=== PATIENT | male | born 1970 ===

== ENCOUNTER 2017-02-18 06:49 | Inpatient (IN) | payer MEDICAID ==
[2017-02-18 07:57] LABS: BASO % 0.3 % (0.0-2.0); EOS % 0.2 % (0.0-4.0); HEMATOCRIT 39.6 % (35.0-51.0); LYMPH # 0.8 K/uL (1.0-4.3); MEAN CELL VOLUME 82.7 fl (80.0-94.0); MEAN CORPUSCULAR HGB CONC 32.7 g/dL (33.0-37.0); MEAN PLATELET VOLUME 8.3 fl (7.2-11.7); MONO # 0.5 K/uL (0.0-0.8); MONO % 4.6 % (0.0-10.0); NEUT # 9.9 K/uL (1.8-7.0); NEUT % 87.9 % (50.0-75.0); PLATELET COUNT 209 K/uL (130-400); RED CELL DISTRIBUTION WIDTH 14.3 % (11.5-14.5); WHITE BLOOD COUNT 11.3 K/uL (4.8-10.8)
[2017-02-18 08:12] LABS: ALCOHOL SERUM < 10 mg/dl (0-10); BLOOD UREA NITROGEN 17 mg/dl (9-20); CALCIUM 10.1 mg/dL (8.4-10.2); CARBON DIOXIDE 21 mmol/L (22-30); CHLORIDE 107 mmol/L (98-107); GFR AFRICAN-AMERICAN > 60; GLUCOSE,RANDOM 138 mg/dL (75-110); POTASSIUM 4.6 MMOL/L (3.6-5.0); SODIUM 141 mmol/l (132-148)
--- NOTE | 2017-02-18 08:22 | ED PDOC ---
HPI: Psych/Substance Abuse Time Seen by Provider: 02/18/17 07:09 Chief Complaint (Nursing): Psychiatric Evaluation Chief Complaint (Provider): Psychiatric Evaluation History Per: Patient History/Exam Limitations: no limitations Onset/Duration Of Symptoms: Hrs Current Symptoms Are (Timing): Still Present Additional Complaint(s): 46 y/o male with a past medical history of depression, diabetes, hypertension, and hypercholesterolemia who presents to the emergency department via ambulance and police after mother called because patient had a knife in his hand and wanted to kill himself. Admits to suicidal behavior with plan to harm self with knife. Reports he is depressed. Patient has history of alcohol and heroin abuse. Denies homicidal ideation, use of medication or drugs. Past Medical History Reviewed: Historical Data, Nursing Documentation, Vital Signs Vital Signs: Last Vital Signs Temp 99.0 F 02/18/17 07:02 Pulse 112 H 02/18/17 07:02 Resp 18 02/18/17 07:02 BP 121/67 02/18/17 07:02 Pulse Ox 95 02/18/17 07:02 - Medical History PMH: Anxiety, Back Problems, Bipolar Disorder, Depression, Diabetes, HTN, Hypercholesterolemia - Family History Family History: States: Unknown Family Hx - Social History Current smoker - smoking cessation education provided: Yes Alcohol: Social Drugs: Other - Home Medications Home Medications: Ambulatory Orders Medication Instructions Recorded Naproxen [Naprosyn] 500 mg PO BID #20 tab 04/13/15 - Allergies Allergies/Adverse Reactions: Allergies Allergy/AdvReac Type Severity Reaction Status Date / Time morphine Allergy SHORTNESS Verified 09/23/15 15:41 OF BREATH Review of Systems ROS Statement: Except As Marked, All Systems Reviewed And Found Negative Constitutional: Negative for: Other (Medication or drugs) Psych: Positive for: Depression, Suicidal ideation. Negative for: Other ( Homicidal ideation) Physical Exam - Reviewed Nursing Documentation Reviewed: Yes Vital Signs Reviewed: Yes - Physical Exam Appears: Positive for: Non-toxic, No Acute Distress Head Exam: Positive for: ATRAUMATIC, NORMAL INSPECTION, NORMOCEPHALIC Skin: Positive for: Normal Color, Warm, Dry Eye Exam: Positive for: Normal appearance, EOMI, PERRL ENT: Positive for: Normal ENT Inspection Neck: Positive for: Normal, Supple Cardiovascular/Chest: Positive for: Regular Rate, Rhythm. Negative for: Murmur Respiratory: Positive for: Normal Breath Sounds. Negative for: Accessory Muscle Use, Wheezing, Respiratory Distress Gastrointestinal/Abdominal: Positive for: Normal Exam, Soft. Negative for: Tenderness Back: Positive for: Normal Inspection. Negative for: L CVA Tenderness, R CVA Tenderness Extremity: Positive for: Normal ROM. Negative for: Pedal Edema Neurologic/Psych: Positive for: Alert, Oriented (x3), Mood/Affect (Calm and cooperative) - Laboratory Results Result Diagrams: 02/18/17 07:30 02/18/17 07:30 - ECG O2 Sat by Pulse Oximetry: 95 (RA) Pulse Ox Interpretation: Normal Medical Decision Making Medical Decision Making: Time: 07:14 Initial impression: Depression and suicidal behavior Initial plan: --Drug Screen, Urine --Urine DIP --CBC w/ diff --Crisis evaluation as ordered Vital signs are stable. Labs reviewed. In my opinion there are no current acute medical conditions that contraindicate the placement of this patient in a psychiatric unit. Time: :59 --Admit to hospital routine: As Inpatient in Adult Psychiatry for bipolar disorder and substance abuse under the care of Dr. Chris Patton MD Scribe Attestation: Documented by Michelle Oviedo, acting as a scribe for Damari Castro MD. Provider Scribe Attestation: All medical record entries made by the Scribe were at my direction and personally dictated by me. I have reviewed the chart and agree that the record accurately reflects my personal performance of the history, physical exam, medical decision making, and the department course for this patient. I have also personally directed, reviewed, and agree with the discharge instructions and disposition. Disposition - Clinical Impression Clinical Impression: Substance abuse, Bipolar disorder - Patient ED Disposition Is Patient to be Admitted: Yes (Inpatient in Adult Psychiatry) Counseled Patient/Family Regarding: Studies Performed - Disposition Disposition Time: 11:59 Condition: FAIR - Pt Status Changed To: Hospital Disposition Of: Inpatient - Admit Certification Admit to Inpatient:: After my assessment, the patient will require hospitalization for at least two midnights. This is because of the severity of symptoms shown, intensity of services needed, and/or the medical risk in this patient being treated as an outpatient. - POA Present On Arrival: None
[2017-02-18 09:18] LABS: EOSINOPHIL 1 % (0-7); NEUTROPHIL 89 % (42-75); TOTAL CELLS COUNTED 100
[2017-02-18 10:46] LABS: ALB/GLOB RATIO 1.4 (1.0-2.1); BILIRUBIN,TOTAL 0.5 mg/dl (0.2-1.3); TOTAL PROTEIN 7.9 G/DL (6.3-8.2)
[2017-02-18] MEDS ORDERED: Magnesium Hydroxide Susp 30 ml UD PO PRN (14:00)
[2017-02-18] MEDS ORDERED: Alum-Mag Hydrox-Simethicone Susp (30 mL) PO PRN (14:00)
--- NOTE | 2017-02-18 17:20 | PCM.BM ---
Treatment Plan Problems - Problems identified on initial assessmt Helplessness/Hopelessness Date Initiated: 02/18/17 Time Initiated: 17:18 Assessment reference: NA Status: Active Medication nonadherence Date Initiated: 02/18/17 Time Initiated: 17:19 Assessment reference: NA Status: Active Defensive Coping Date Initiated: 02/18/17 Time Initiated: 17:19 Assessment reference: NA Status: Active Treatment assets and liabiliti Patient Assests: self-reliant, ADL independent, physically healthy Patient Liabilities: substance abuse, legal issue, other - Milieu Protocol Maintain good personal hygiene: daily Encourage regular showers, daily Remind patient to perform daily oral care, daily Assist patient to perform ADL's Maintain personal safety: every shift Educate patient to report safety concerns to staff, every shift Monitor environment for contraband/sharps Medication safety: Monitor for expected outcome, potential side effects: every shift, Assess barriers to learning: every shift, Assess readiness for medication education: every shift Discharge/Continuing Care - Education Needs Education Needs: Patient Medication, Patient Diagnosis/Disease Process, Patient Activities of Daily Living, Patient Personal Hygiene/Grooming - Discharge Discharge Criteria: Tolerates medication w/o severe side effects, Free of Suicidal thoughts, Normal sleep pattern
--- NOTE | 2017-02-18 20:07 | CP.PCM.HP ---
History of Present Illness - History of Present Illness History of Present Illness: 46 yo male with history of DM2, HLD and Depression admitted to psyche unit because of suicidal intent. Patient also admitted to Heroin and Cocaine abuse. Present on Admission - Present on Admission Any Indicators Present on Admission: No History of DVT/PE: No History of Uncontrolled Diabetes: No Urinary Catheter: No Decubitus Ulcer Present: No Review of Systems - Review of Systems All systems: reviewed and no additional remarkable complaints except (aside from those mentioned above, 12 point system review were negative by me) Past Patient History - Tetanus Immunizations Tetanus Immunization: Unknown - Past Social History Smoking Status: Light Smoker < 10 Cigarettes Daily Alcohol: Social Drugs: Cocaine, Opiates, Other - CARDIAC Hx Cardiac Disorders: Yes Other/Comment: high cholesterol - PULMONARY Hx Respiratory Disorders: No - NEUROLOGICAL Hx Neurological Disorder: No - HEENT Hx HEENT Problems: No - RENAL Hx Chronic Kidney Disease: No - ENDOCRINE/METABOLIC Hx Diabetes Mellitus Type 2: Yes (takes metformin) - HEMATOLOGICAL/ONCOLOGICAL Hx Blood Disorders: No Hx Human Immunodeficiency Virus (HIV): No - INTEGUMENTARY Hx Dermatological Problems: No - MUSCULOSKELETAL/RHEUMATOLOGICAL Hx Musculoskeletal Disorders: No - GASTROINTESTINAL Hx Gastrointestinal Disorders: No - GENITOURINARY/GYNECOLOGICAL Hx Genitourinary Disorders: No - PSYCHIATRIC Hx Anxiety: Yes Hx Bipolar Disorder: Yes Hx Depression: Yes Hx Substance Use: Yes - SURGICAL HISTORY Hx Surgeries: No - ANESTHESIA Hx Anesthesia: No Meds Allergies/Adverse Reactions: Allergies Allergy/AdvReac Type Severity Reaction Status Date / Time morphine Allergy SHORTNESS Verified 09/23/15 15:41 OF BREATH Physical Exam - Constitutional Appears: No Acute Distress - Head Exam Head Exam: ATRAUMATIC - Eye Exam Eye Exam: absent: Scleral icterus - ENT Exam ENT Exam: Mucous Membranes Moist - Neck Exam Neck exam: Negative for: Meningismus - Respiratory Exam Respiratory Exam: absent: Rhonchi, Wheezes, Respiratory Distress - Cardiovascular Exam Cardiovascular Exam: REGULAR RHYTHM, +S1, +S2 - GI/Abdominal Exam GI & Abdominal Exam: Soft. absent: Tenderness - Rectal Exam Rectal Exam: Deferred - Extremities Exam Extremities exam: Negative for: pedal edema - Neurological Exam Neurological exam: Alert, Oriented x3 - Psychiatric Exam Psychiatric exam: Normal Affect - Skin Skin Exam: Dry, Intact Results - Vital Signs Recent Vital Signs: Last Vital Signs Temp 98.6 F 02/18/17 11:25 Pulse 60 02/18/17 19:07 Resp 18 02/18/17 14:26 BP 117/74 02/18/17 19:07 Pulse Ox 95 02/18/17 12:40 - Labs Result Diagrams: 02/18/17 07:30 02/18/17 07:30 Assessment & Plan (1) Suicidal intent Status: Acute Comment: psyche is managing (2) DM2 (diabetes mellitus, type 2) Status: Acute Comment: diabetic diet. accuchek ACHS. HgA1C, BMP in am
--- NOTE | 2017-02-18 20:43 | CARD ---
APPROVED REPORT EKG Measurement Heart [id number] MA [id number] <Conclusion> Normal sinus rhythm Minimal voltage criteria for LVH, may be normal variant Borderline ECG
[2017-02-19 08:28] LABS: CHOLESTEROL 168 mg/dL (0-199)
[2017-02-19] MEDS: Multivitamin With Minerals Tab PO SCH (09:06)
[2017-02-19 11:34] VITALS: O2SAT 18
--- NOTE | 2017-02-19 11:52 | PCM.PSYCH ---
Initial Psychiatric Evaluation - Initial Psychiatric Evaluation Type of Admission: Voluntary Legal Status: Capacity Chief Complaint (in patient's own words): i need to stop using Patient's Reaction to Hospitalization: cooperative History of Present Illness and Precipitating Events: 46 yo male with history of bipolar depression and opioid dependence. he presented to the ER reporting suicidal thoughts. pt wanted help before the thought progressed and he acted on them. he reports low energy, poor concentration, inability to sleep at night, feelings of hopelessness, lack of interest and motivation. he denies any recent manic symptoms. he reports no psychotic symptoms. he reports using about 4 bags of heroin by snorting daily. he minimizes other substance use, but his urine is positive for cocaine and pcp in addition to opiates. he denies any severe withdrawal symptoms. Current Medications: Active Medications Generic Name Dose Route Start Last Admin Trade Name Freq PRN Reason Stop Dose Admin Acetaminophen 650 mg 02/18/17 14:00 Tylenol 325mg Tab PO Q4 PRN Pain, moderate (4-7) Al Hydrox/Mg Hydrox/Simethicone 30 ml 02/18/17 14:00 Maalox Plus 30 Ml PO Q4 PRN Dyspepsia Aripiprazole 5 mg 02/19/17 12:00 Abilify PO DAILY JAMI Bupropion HCl 150 mg 02/20/17 09:00 Wellbutrin Sr 150 Mg PO DAILY JAMI Clonidine HCl 0.1 mg 02/18/17 17:00 02/19/17 09:04 Catapres PO 0.1 mg Q8 JAMI Administration Diphenhydramine HCl 50 mg 02/18/17 14:00 Benadryl PO Q6 PRN Extrapyramidal Symptoms Haloperidol 5 mg 02/18/17 14:00 Haldol PO Q4 PRN Agitation Haloperidol Lactate 5 mg 02/18/17 14:00 Haldol IM Q4 PRN Agitation, Unable to Take PO Ibuprofen 600 mg 02/18/17 15:54 02/19/17 09:05 Motrin Tab PO 600 mg Q6 PRN Administration Pain, severe (8-10) Loperamide HCl 2 mg 02/18/17 15:52 Imodium PO QID PRN Diarrhea Lorazepam 2 mg 02/18/17 14:00 Ativan IM Q4 PRN Anxiety/Agitation,Unable PO Lorazepam 2 mg 02/18/17 14:00 Ativan PO Q4 PRN Anxiety/Agitation Magnesium Hydroxide 30 ml 02/18/17 14:00 Milk Of Magnesia PO HS PRN Constipation Multivitamins/Minerals 1 tab 02/19/17 09:00 02/19/17 09:06 Therapeutic-M Tab PO 1 tab DAILY JAMI Administration Past Psychiatric History - Past Psychiatric History Previous Treatment History: Inpatient Prior Professional Help: prior admissions, prior rehab treatment History of Abuse: denies at this time History of ETOH/Drug Use: uds positive for cocaine, opiates and pcp. smokes 5 cigarettes daily. History of Family Illness: denies Pertinent Medical Hx (Current Medical&Sleep Prob, Allergies): Allergies Allergy/AdvReac Type Severity Reaction Status Date / Time morphine Allergy SHORTNESS Verified 09/23/15 15:41 OF BREATH Naproxen [Naprosyn] 500 mg PO BID #20 tab 04/13/15 Review of Systems - Psychiatric Psychiatric: As Per HPI Mental Status Examination - Personal Presentation Personal Presentation: Looks stated age Additional comments: well groomed - Affect Affect: Broad - Motor Activity Motor Activity: Calm - Reliability in Providing Information Reliability in Providing Information: Good - Speech Speech: Organized - Mood Mood: Depressed - Formal Thought Process Formal Thought Process: No Impairment - Obsessions/Compulsions Obsessions: No Compulsions: No - Cognitive Functions Orientation: Person, Place, Situation, Time Sensorium: Alert Attention/Concentration: Attentive Abstract Thinking: [place] Estimate of Intelligence: Average Judgement: Intact, as evidence by: Insight regarding need for hospitalization Memory: Recent intact, as evidence by: Ability to recall events of the day, Remote intact, as evidenced by: Abilit to recall sig. life events - Risk Risk: Suicidal, Diminished functioning - Strength & Assets Inventory Strength & Assets Inventory: Intelligence - Limitations Limitations: Other (on probation) DSM 5 DX - DSM 5 DSM 5 Diagnosis: opioid dependence pcp abuse cocaine abuse bipolar disorder, depressed - Recommended/Plan of Treatment Treatment Recommendations and Plan of Treatment: admit to [facility] for safety and observation gather collateral information provide supportive therapy adjust medications- start wellbutrin for depression, abilify for mood. pt agrees with this treatment refer to aftercare hospitalist consult Projected ELOS: 2-3 days - Smoking Cessation Smoking Cessation Initiated: Yes
[2017-02-19 20:50] VITALS: TEMP 97.5
[2017-02-20] MEDS ORDERED: buPROPion SR 150 MG TABLET PO SCH (09:00)
[2017-02-20] MEDS: Multivitamin With Minerals Tab PO SCH (09:56)
[2017-02-20 10:01] VITALS: PULSE 60
[2017-02-20 10:53] VITALS: BP 113/46; RESP 20
--- NOTE | 2017-02-20 11:43 | PCM.PYCHDC ---
Mental Status Examination - Mental Status Examination Orientation: Person, Place, Situation, Time Memory: Intact Mood: Neutral Affect: Broad Speech: Appropriate Attention: WNL Concentration: WNL Association: WNL Fund of Knowledge: WNL Formal Thought Process: No Impairment Description of patient's judgement and insight: fair i/j Psychotic Thoughts and Behaviors: denies a/v hallucinations Suicidal Ideation: No Current Homicidal Ideation?: No Plan: denies any suicidal or homicidal thoughts/plans or intent Discharge Summary - Discharge Note Reason for Hospitalization: pt requested admission. stated he was depressed and hopeless in the context of substance abuse Laboratory Data: Abnormal Lab Results 02/19/17 02/20/17 07:30 06:50 Thyroxine (T4) 7.32 RPR Nonreactive Consultations:: List each consultation separately and include: 1. Reason for request. 2. Findings. 3. Follow-up Consultations: seen by certified medical coding specialist Summary of Hospital Course include:: 1. Description of specific treatment plan utilized for patients during their course of treatmen. 2. Summarize the time- course for resolution of acute symptoms and/or regressed behaviors. 3. Describe issues identified and worked on during hospitalization. 4. Describe medication utilized. 5. Describe medical problems identified and treated. 6. Reassessment of suicide risk Summary of Hospital Course: 46 yo male with history of bipolar depression and opioid dependence. he presented to the ER reporting suicidal thoughts. pt wanted help before the thought progressed and he acted on them. he reports low energy, poor concentration, inability to sleep at night, feelings of hopelessness, lack of interest and motivation. he denies any recent manic symptoms. he reports no psychotic symptoms. he reports using about 4 bags of heroin by snorting daily. he minimizes other substance use, but his urine is positive for cocaine and pcp in addition to opiates. he denies any severe withdrawal symptoms. hospital course was admitted to [facility] and oriented to the unit. placed on routine safety protocols. placed on detox meds for opioids. he was started on wellbutrn for depression and neurontin for sleep. he was started on abilify to help stabilize mood/treat depression. he asked to leave the hospital as he had an appointment at [facility] on 02/21 early in the am. during his stay he was future oriented, goal directed and denying any suicidal or homicidal thoughts/plans or intent. - Final Diagnosis (DSM 5) Condition upon Discharge: FAIR DSM 5: bipolar disorder polysubstance dependence Disposition: HOME/ ROUTINE Follow-up Treatment Plan: attend aa/na meetings daily call 911 if any suicidal or homicidal thoughts do not use alcohol, tobacco or other illicit substances sw will call with your appointment take medications as prescribed follow up with your primary care doctor Prescriptions/Medication Reconciliation: ARIPiprazole [Abilify] 5 mg PO DAILY #15 tab buPROPion SR [Wellbutrin SR 150 MG] 150 mg PO DAILY #15 tab Cyclobenzaprine [Flexeril] 10 mg PO TID PRN #15 tab PRN Reason: Muscle Spasm DiphenhydrAMINE [Benadryl] 50 mg PO HS PRN #15 cap PRN Reason: Sleep Gabapentin [Neurontin] 400 mg PO HS #15 cap Multimineral/Multivitamin [Therapeutic-M Tab] 1 tab PO DAILY #30 tab - Smoking Cessation Smoking Cessation Medication prescribed: No Reason for not providing: declines - Antipsychotic Medications Pt discharged on 2 or more routine antipsychotic medications: No
== END 2017-02-20 10:45 | disposition home or self-care (01) | DRG 430 ==
LOC: H.ER 06:49 → H.ERHOLD 11:59 → H.PSYCH 13:27
PROVIDERS: ADMIT Psychiatry & Neurology Psychiatry; ATTEND Psychiatry & Neurology Psychiatry
PROC: HZ59ZZZ Individual Psychotherapy for Substance Abuse Treatment, Supportive (ICD-10-PCS; principal; 2017-02-18)
PROC: HZ2ZZZZ Detoxification Services for Substance Abuse Treatment (ICD-10-PCS; 2017-02-18)
DX: F31.9 Bipolar disorder, unspecified (principal); F11.20 Opioid dependence, uncomplicated; R45.851 Suicidal ideations; F14.10 Cocaine abuse, uncomplicated; F16.10 Hallucinogen abuse, uncomplicated; F17.200 Nicotine dependence, unspecified, uncomplicated; Z88.5 Allergy status to narcotic agent; I10 Essential (primary) hypertension; E78.00 Pure hypercholesterolemia, unspecified; E11.9 Type 2 diabetes mellitus without complications; E78.5 Hyperlipidemia, unspecified